=== PATIENT | female | born 1985 | race Two or more races ===

== ENCOUNTER 2021-03-30 13:54 | Emergency (ER) | payer OTHER ==
[~2021-03-30] VITALS: Ht 149.9 cm; Wt 56.2 kg
== END 2021-03-30 17:33 | disposition home or self-care (01) ==
LOC: ER 13:54
DX: O03.9 Complete or unspecified spontaneous abortion without complication (principal)

== ENCOUNTER → 2021-10-28 | Day surgery (SDC) | payer OTHER ==
[~2021-10-28] VITALS: Ht 152.4 cm; Wt 59.0 kg
[~2021-10-28] MED LIST: PRENA1 TRUE CO1 EACH
--- NOTE | 2021-10-28 00:09 | NUR ---
SE RECIBE PTE ALERTA Y ORIENTADA X3, LA CUAL REFIERE TENER DOLOR PELVICO Y SANGRADO VAGINAL . PTE EMBARAZADA [address] JESSICA.
--- NOTE | 2021-10-28 00:44 | NUR ---
PACIENTE ALERTA Y ORIENTADA X3. MANEJADA POR MISS. MCKEON QUIEN ORIENTA A PACIENTE SOBRE TX Y PROCEDIMIENTO A REALIZAR Y REFIRIO ENTENDER. ADMINISTRA MEDICAMENTOS ORDENADOS POR . REALIZA MUESTRAS DE LABORATORIO BAJO MEDIDAS ASEPTICAS. CANALIZACION PATENTE Y CAYLA DE EDEMA Y ERITEMA. PENDIENTE SONOGRAMA OBSTETRICO ORDENADO POR .
--- NOTE | 2021-10-28 02:04 | NUR ---
LE REALIZAN SONOGRAMMA ORDENADO POR .
--- NOTE | 2021-10-28 07:09 | NUR ---
SE OBSERVA PACIENTE ALERTA Y ORIENTADA CON BARRANDAS ARRIBA Y CAMA BAJA. SE OBSERVA DELMY PATENTE Y CON SMITH DE IDENTIFICACION. PACIENTE PARA ADMICION.
== END | disposition home or self-care (01) ==
LOC: ER 10-27 23:59 → SEC-K 06:34 → CIR.AMB 06:34 → ER 06:34 → CIR.AMB 06:34 → EDSTATUS 10:30 → SEC-K 16:05
PROVIDERS: ATTEND Obstetrics & Gynecology
DX: O03.4 Incomplete spontaneous abortion without complication (principal); Z20.822 Contact with and (suspected) exposure to COVID-19